=== PATIENT | female | born 1950 | race Native Hawaiian/Other Pacific Islander ===

== ENCOUNTER 2019-05-09 12:00 | Outpatient (CLI) | payer OTHER, MEDICARE ==
[2019-05-09 12:31] LABS: POTASSIUM 3.7 mmol/L (3.6-5.2)
[2019-05-09 12:35] LABS: PLATELET COUNT 216 K/uL (152-353)
== END 2019-05-09 22:40 | disposition home or self-care (01) ==
LOC: RAD 12:00
PROVIDERS: Plastic Surgery Plastic Surgery Within the Head and Neck
DX: Z01.810 Encounter for preprocedural cardiovascular examination (principal); Z01.811 Encounter for preprocedural respiratory examination; Z01.812 Encounter for preprocedural laboratory examination; Z01.818 Encounter for other preprocedural examination
CPT/HCPCS: 36415; 80048; 85027; 93005

== ENCOUNTER 2021-12-02 00:20 | Emergency (ER) | payer OTHER, MEDICARE ==
[~2021-12-02] VITALS: Ht 160 cm; Wt 81.6 kg
[2021-12-02 01:02] LABS: PLATELET COUNT 183 K/uL (152-353)
[2021-12-02 01:09] LABS: POTASSIUM 3.5 mmol/L (3.6-5.2)
[2021-12-02] MEDS ORDERED: ONDA4TAB3 PO (02:23)
[2021-12-02 02:30] VITALS: BP 126/75; TEMP 98.5
== END 2021-12-02 02:30 | disposition home or self-care (01) ==
LOC: ED 00:20
PROVIDERS: Emergency Medicine
DX: R11.2 Nausea with vomiting, unspecified (principal); R19.7 Diarrhea, unspecified; B34.9 Viral infection, unspecified; R06.02 Shortness of breath; R10.84 Generalized abdominal pain; M25.512 Pain in left shoulder; M25.511 Pain in right shoulder
CPT/HCPCS: 80053; 80307; 81002; 82150; 83690; 83880; 84484; 85027; 93005; 96374; 96375; 99284; J2270; J2405; Q9963